=== PATIENT | female | born 1970 | race Caucasian/White ===

== ENCOUNTER 2017-09-06 09:25 | Emergency (ER) | payer MEDICAID, OTHER ==
[~2017-09-06] VITALS: Ht 162.6 cm; Wt 99.8 kg
[~2017-09-06 09:25] MED LIST: ATEN-60; METH100I; SERT20CO7
[2017-09-06] MEDS ORDERED: cloNIDine HCL 0.1 MG TAB ONE (10:22)
[2017-09-06] MEDS ORDERED: cloNIDine HCL 0.1 MG TAB PO ONE (10:30)
[2017-09-06 11:32] VITALS: BP 139/100
[2017-09-06] MEDS ORDERED: KETOROLAC TROMETH 60MG/2ML VIAL IM ONE (12:15)
[2017-09-16] MEDS ORDERED: LEVO500T21 PO (13:36)
[2017-09-16] MEDS ORDERED: METR500T PO (13:36)
[2017-09-16] MEDS ORDERED: HYDR-4683 PO (13:36)
== END 2017-09-06 12:55 | disposition home or self-care (01) ==
LOC: ER 09:25
DX: K08.89 Other specified disorders of teeth and supporting structures (principal); I10 Essential (primary) hypertension; Z79.899 Other long term (current) drug therapy
CPT/HCPCS: 96372; 99283; J1885

== ENCOUNTER 2017-09-13 23:37 | Inpatient (IN) | payer MEDICAID, OTHER ==
[~2017-09-13] VITALS: Ht 162.6 cm; Wt 106.4 kg
[2017-09-14] MEDS ORDERED: cloNIDine HCL 0.1 MG TAB PO ONE
[2017-09-14 00:24] LABS: Basophils # (auto) 0.1 uL; Eosinophils # (auto) 0.3 uL; Monocytes # (auto) 0.7 uL; Nucleated Red Blood Cells % 0.1 %
[2017-09-14 00:25] LABS: Basophils % (auto) 0.8 % (0.0-2.0); Eosinophils % (auto) 2.6 % (0.0-7.0); Hematocrit 42.4 % (36.0-46.0); Lymphocytes # (auto) 2.4 uL; Lymphocytes % (auto) 19.7 % (10.0-50.0); Mean Corpuscular Hemoglobin 26.6 pg (28.0-32.0); Mean Corpuscular Hgb Conc. 33.1 g/dL (32.0-36.0); Mean Corpuscular Volume 80.4 fL (80.0-100.0); Monocytes % (auto) 5.3 % (0.0-12.0); Neutrophils # (auto) 8.8 uL; Neutrophils % (auto) 71.6 % (37.0-80.0); Platelet Count (auto) 360 10^3/uL (140-450); Red Blood Cells 5.27 10^6/uL (4.0-5.20); Red Cell Distribution Width 14.1 % (11.8-14.3); White Blood Cell 12.3 10^3/uL (4.4-10.8)
[2017-09-14 00:52] LABS: Albumin 4.1 g/dL (3.4-5.0); BUN/Creatinine Ratio 14.6; Bilirubin, Total 0.4 mg/dL (0.2-1.0); Calcium 9.9 mg/dL (8.5-10.1); Potassium 4.4 mmol/L (3.5-5.1); Total Protein 8.4 g/dL (6.4-8.2)
[2017-09-14] MEDS ORDERED: HYDROmorphone HCL 2 MG/ML VL ONE ×2 (01:05→05:29)
[2017-09-14] MEDS ORDERED: ONDANSETRON HCL 4 MG/2 ML VIAL ONE ×2 (01:05→05:29)
[2017-09-14] MEDS ORDERED: ONDANSETRON HCL 4 MG/2 ML VIAL IV ONE ×3 (01:15→13:00)
[2017-09-14] MEDS ORDERED: HYDROmorphone HCL 2 MG/ML VL IV ONE ×2 (01:15→05:30)
[2017-09-14] MEDS ORDERED: SODIUM CHLORIDE 0.9% 1,000 ML IV ONE (05:30)
[2017-09-14] MEDS ORDERED: ACETAMINOPHEN 500 MG TAB PO PRN (05:45)
[2017-09-14] MEDS ORDERED: cefTRIAXone 1GM/10ml IVPUSH 10 ML IV ONE (05:45)
[2017-09-14] MEDS ORDERED: metroNIDAZOLE 500MG/100ML 100 ML IV ONE (05:45)
[2017-09-14] MEDS ORDERED: ONDANSETRON HCL 4 MG/2 ML VIAL IV PRN (05:45)
[2017-09-14] MEDS ORDERED: SODIUM CHLORIDE 0.9% 1,000 ML IV SCH (06:45)
[2017-09-14 09:00] VITALS: BP_SYST 151; BP_SYST 158; BP_DIAS 89; BP_DIAS 95
[2017-09-14] MEDS: HYDROmorphone HCL 2 MG/ML VL IV PRN ×3 (10:22→21:13)
[2017-09-14 10:32] LABS: INR 0.98 (0.9-1.15); Partial Thromboplastin Time 25.2 sec (22.64-33.71); Prothrombin Time 10.7 sec (9.37-12.3)
[2017-09-14] MEDS ORDERED: SUCCINYLCHOLINE CHLORIDE 20 MG/ML 10ML VIAL IV ONE (10:56)
[2017-09-14] MEDS ORDERED: LIDOCAINE 1% HCL (LOCAL ANESTH.) INJ 20ML MDV ONE (10:56)
[2017-09-14] MEDS ORDERED: PROPOFOL 10 MG/ML 20 ML IV ONE (10:58)
[2017-09-14] MEDS ORDERED: MIDAZOLAM HCL 1MG/1ML-2 ML VIAL ONE (10:58)
[2017-09-14] MEDS ORDERED: ROCURONIUM 10MG/ML 10ML VIAL IV ONE (10:58)
[2017-09-14] MEDS ORDERED: fentaNYL CITRATE 100 MCG/2 ML VL ONE (12:22)
[2017-09-14] MEDS ORDERED: GLYCOPYRROLATE 0.2 MG/ML 1ML VIAL ONE (12:45)
[2017-09-14] MEDS ORDERED: NEOSTIGMINE 1 MG/ML INJ (10mg/10ML VIAL) ONE (12:45)
[2017-09-14] MEDS ORDERED: POVIDONE IODINE 10 % TOPICAL OINT 30GM TOP ONE (12:45)
[2017-09-14] MEDS ORDERED: METOCLOPRAMIDE HCL 5MG/ml INJ 2ml VIAL IV ONE (13:00)
[2017-09-14] MEDS ORDERED: NALOXONE HCL 0.4 MG/ML VIAL IV PRN (13:00)
[2017-09-14] MEDS ORDERED: hydrALAZINE HCL 20 MG/ML VL IV PRN (13:00)
[2017-09-14] MEDS ORDERED: KETOROLAC TROMETH 30 MG/ML 1ML VIAL IV PRN (13:00)
[2017-09-14] MEDS ORDERED: HYDROmorphone HCL 2 MG/ML VL IV PRN ×2 (13:00)
[2017-09-14] MEDS ORDERED: MORPHINE SULF INJ 2 MG/ML SYRINGE 1ML IV PRN (13:40)
[2017-09-14] MEDS ORDERED: MORPHINE SULF INJ 2 MG/ML SYRINGE 1ML ONE (13:43)
[2017-09-14] MEDS: SODIUM CHLORIDE 0.9% 1,000 ML IV SCH ×2 (13:45→23:45)
[2017-09-14 16:58] VITALS: BP 118/72
[2017-09-14] MEDS: metroNIDAZOLE 500MG/100ML 100 ML IV SCH ×2 (19:15→22:17)
[2017-09-14 20:00] VITALS: BP 144/71
[2017-09-14 21:59] VITALS: BP 144/71
[2017-09-14] MEDS: HYDROcodone-ACET 5/325MG TAB PO PRN (22:18)
[2017-09-15] VITALS (7 sets, daily range): BP systolic 125–160; BP diastolic 65–95
[2017-09-15] MEDS: HYDROmorphone HCL 2 MG/ML VL IV PRN ×3 (01:45→14:42)
[2017-09-15] MEDS: HYDROcodone-ACET 5/325MG TAB PO PRN ×2 (04:31→11:36)
[2017-09-15] MEDS: metroNIDAZOLE 500MG/100ML 100 ML IV SCH ×3 (05:54→21:30)
[2017-09-15 07:47] LABS: Basophils # (auto) 0 uL; Basophils % (auto) 0.4 % (0.0-2.0); Eosinophils # (auto) 0.3 uL; Monocytes # (auto) 0.5 uL
[2017-09-15 07:50] LABS: Eosinophils % (auto) 3.4 % (0.0-7.0); Hematocrit 34.9 % (36.0-46.0); Hemoglobin 11.6 g/dL (12.2-16.2); Lymphocytes % (auto) 21.7 % (10.0-50.0); Mean Corpuscular Hemoglobin 26.8 pg (28.0-32.0); Mean Corpuscular Hgb Conc. 33.1 g/dL (32.0-36.0); Monocytes % (auto) 5.4 % (0.0-12.0); Neutrophils # (auto) 6.2 uL; Neutrophils % (auto) 69.1 % (37.0-80.0); Nucleated Red Blood Cells % 0.2 %; Platelet Count (auto) 283 10^3/uL (140-450); Red Blood Cells 4.31 10^6/uL (4.0-5.20); Red Cell Distribution Width 13.9 % (11.8-14.3)
[2017-09-15 07:59] LABS: Albumin 3.2 g/dL (3.4-5.0); BUN/Creatinine Ratio 18.3; Bilirubin, Total 0.8 mg/dL (0.2-1.0); Calcium 8.1 mg/dL (8.5-10.1); Magnesium 2.2 mg/dL (1.6-2.6); Potassium 4.1 mmol/L (3.5-5.1); Total Protein 6.8 g/dL (6.4-8.2)
[2017-09-15] MEDS: SODIUM CHLORIDE 0.9% 1,000 ML IV SCH ×2 (09:09→14:42)
[2017-09-15] MEDS: cefTRIAXone 1GM/10ml IVPUSH 10 ML IV SCH (09:09)
[2017-09-15] MEDS: OXYCODONE W/ ACETAMINOPHEN 5/325MG TABLET PO PRN ×2 (17:06→22:54)
[2017-09-15] MEDS: MEPERIDINE HCL (25 MG/ML) 1ML VIAL IV PRN (21:30)
[2017-09-16] MEDS: OXYCODONE W/ ACETAMINOPHEN 5/325MG TABLET PO PRN ×3 (03:46→13:07)
[2017-09-16] MEDS: SODIUM CHLORIDE 0.9% 1,000 ML IV SCH (04:48)
[2017-09-16 05:00] VITALS: BP 150/71
[2017-09-16] MEDS: metroNIDAZOLE 500MG/100ML 100 ML IV SCH (05:46)
[2017-09-16 06:31] LABS: Hemoglobin 11.4 g/dL (12.2-16.2)
[2017-09-16 06:34] LABS: Hematocrit 35.2 % (36.0-46.0)
[2017-09-16] MEDS: cefTRIAXone 1GM/10ml IVPUSH 10 ML IV SCH (08:21)
[2017-09-16 09:00] VITALS: BP 143/72
[2017-09-16] MEDS: MEPERIDINE HCL (25 MG/ML) 1ML VIAL IV PRN (11:20)
[2017-09-16 12:33] VITALS: BP 152/83
[2017-09-16] MEDS ORDERED: LEVO500T21 PO (13:36)
[2017-09-16] MEDS ORDERED: HYDR-4683 PO (13:36)
[2017-09-16] MEDS ORDERED: METR500T PO (13:36)
[2017-09-16 15:17] VITALS: BP 149/82
== END 2017-09-16 17:10 | disposition home or self-care (01) | DRG 418 ==
LOC: EDBD 23:37 → ER 23:49 → OVERFLOW 23:50 → WEST WING 09-14 08:07
PROVIDERS: ADMIT Nurse Practitioner Family; ATTEND Internal Medicine
PROC: 0FT44ZZ Resection of Gallbladder, Percutaneous Endoscopic Approach (ICD-10-PCS; principal; 2017-09-14 12:05)
DX: K80.00 Calculus of gallbladder with acute cholecystitis without obstruction (principal); Z68.41 Body mass index [BMI] 40.0-44.9, adult; D64.9 Anemia, unspecified; E66.9 Obesity, unspecified; G89.29 Other chronic pain; M54.9 Dorsalgia, unspecified; F17.210 Nicotine dependence, cigarettes, uncomplicated; I10 Essential (primary) hypertension; Z79.899 Other long term (current) drug therapy; Z82.49 Family history of ischemic heart disease and other diseases of the circulatory system; Z91.19 Patient's noncompliance with other medical treatment and regimen; Z88.8 Allergy status to other drugs, medicaments and biological substances; Z90.13 Acquired absence of bilateral breasts and nipples
CPT/HCPCS: 36415; 74176; 76705; 80053; 80061; 82150; 82247; 83690; 83735; 84702; 85014; 85018; 85025; 85610; 85730; 86850; 86900; 86901; 93005; 96361; 96374; 96375; 96376; J0330; J1885; J2001; J2250; J2405; J2704; J3490

== ENCOUNTER 2017-09-21 15:50 | Emergency (ER) | payer SELFPAY ==
[~2017-09-21] VITALS: Ht 162.6 cm; Wt 99.8 kg
[~2017-09-21 15:50] MED LIST changes: +HYDR-4683 PO; +LEVO500T21 PO; +METR500T PO
[2017-09-21 16:13] VITALS: BP 130/76
== END 2017-09-21 20:45 | disposition left against medical advice (07) ==
LOC: ER 16:01
DX: K80.00 Calculus of gallbladder with acute cholecystitis without obstruction (principal); Z76.0 Encounter for issue of repeat prescription; Z53.21 Procedure and treatment not carried out due to patient leaving prior to being seen by health care provider